=== PATIENT | female | born 1970 | race Caucasian/White ===

== ENCOUNTER 2022-04-28 13:29 | Emergency (ER) | payer SELFPAY ==
[~2022-04-28] VITALS: Ht 162.6 cm; Wt 52.2 kg
[2022-04-28 14:33] VITALS: BP 132/92
--- NOTE | 2022-04-28 15:01 | NUR ---
Patient discharged to home in stable condition. Written and verbal after care instructions given. Patient verbalizes understanding of instruction.
== END 2022-04-28 15:01 | disposition home or self-care (01) ==
LOC: ER 13:55
DX: R10.13 Epigastric pain (principal)